=== PATIENT | male | born 1995 | race Caucasian/White ===

== ENCOUNTER 2017-09-14 12:40 | Emergency (ER) | payer MEDICAID ==
[~2017-09-14] VITALS: Ht 170.2 cm; Wt 53.1 kg
[2017-09-14 12:54] VITALS: BP 114/77
== END 2017-09-14 14:22 | disposition home or self-care (01) ==
LOC: ER 12:43
DX: R05 Cough (principal); R07.89 Other chest pain
CPT/HCPCS: 71046; A4606; Z7610

== ENCOUNTER 2018-07-05 18:39 | Emergency (ER) | payer MEDICAID, OTHER ==
[~2018-07-05] VITALS: Ht 170.2 cm; Wt 53.1 kg
--- NOTE | 2018-07-05 19:27 | NUR ---
MARIEL MUNOZ AT BEDSIDE
--- NOTE | 2018-07-05 19:29 | NUR ---
EMT PERFORMING EKG IN TRIAGE ROOM
[2018-07-05] MEDS ORDERED: ALBUTEROL FS 2.5 MG/3 ML VIAL.NEB NEB ONE ×3 (20:00→22:00)
[2018-07-05] MEDS ORDERED: IPRATROPIUM NEB FS 0.5 MG/2.5 ML AMPUL.NEB NEB ONE ×2 (20:00→21:00)
[2018-07-05] MEDS ORDERED: predniSONE 20 MG TABLET PO ONE ×2 (20:00→21:00)
[2018-07-05] MEDS ORDERED: predniSONE 20 MG TABLET ONE (20:20)
[2018-07-05] MEDS ORDERED: KETOROLAC TROMETHAMINE INJ 30 MG/ML VIAL IV ONE (20:30)
--- NOTE | 2018-07-05 20:33 | NUR ---
PT BBSELF FROM HOME C/C L SIDED CP AND SHOULDER PAIN ON DEEP INSPIRATION X3 DAYS WITH COUGH. PT IS AAOX4. SKIN WARM AND DRY. NO S/S OF ACUTE DISTRESS NOTED. 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 PT SAFETY AND COMFORT MEASURES IN PLACE. WILL CONITNUE TO MONITOR PT.
[2018-07-05] MEDS ORDERED: KETOROLAC TROMETHAMINE INJ 30 MG/ML VIAL ONE (20:36)
[2018-07-05] MEDS ORDERED: ALBUTEROL FS 2.5 MG/3 ML VIAL.NEB ONE (20:43)
[2018-07-05] MEDS ORDERED: IPRATROPIUM NEB FS 0.5 MG/2.5 ML AMPUL.NEB ONE (20:43)
--- NOTE | 2018-07-05 20:45 | NUR ---
RT BEDSIDE FOR BREATHING TREATMENT
[2018-07-05] MEDS ORDERED: KETOROLAC TROMETHAMINE INJ 60 MG/2 ML VIAL IM ONE (21:00)
[2018-07-05 21:03] LABS: BASOPHILS # (AUTO) 0.1 /CMM (0.0-0.2); EOSINOPHILS % (AUTO) 0.9 % (0.0-6.0); HEMATOCRIT 44 % (39-51); HEMOGLOBIN 14.8 g/dL (13.5-17.5); LYMPHOCYTES # (AUTO) 1.8 /CMM (0.8-4.8); LYMPHOCYTES % (AUTO) 19.8 % (20.0-44.0); MEAN CORPUSCULAR HGB CONC 34 g/dl (31.0-36.0); MEAN CORPUSCULAR VOLUME 90 fL (80-96); MONOCYTES # (AUTO) 0.6 /CMM (0.1-1.30); MONOCYTES % (AUTO) 6.8 % (2.0-12.0); NEUTROPHILS # (AUTO) 6.3 /CMM (1.8-8.9); NEUTROPHILS % (AUTO) 71.5 % (43.0-81.0); PLATELET COUNT (AUTO) 155 /CMM (150-450); RED BLOOD CELL COUNT(AUTO) 4.87 MIL/uL (4.5-6.0); WHITE BLOOD COUNT (AUTO) 8.9 K/uL (4.3-11.0)
[2018-07-05 21:12] LABS: CALCIUM, SERUM 9.4 mg/dL (8.5-10.1); CARBON DIOXIDE 30 mmol/L (21-32); CHLORIDE 103 mmol/L (98-107); CREATININE 1.1 mg/dL (0.6-1.3); GLUCOSE 104 mg/dL (74-106); POTASSIUM 3.7 mmol/L (3.5-5.1); SODIUM SERUM 140 mmol/L (136-145); UREA NITROGEN, BLOOD 15 mg/dL (7-18)
--- NOTE | 2018-07-05 22:11 | NUR ---
Patient discharged to home in stable condition. Written and verbal after care instructions given. Patient verbalizes understanding of instruction. SECOND BREATHING TREATMENT COMPLETED. PT AMBULATED OUT WITH NO S/S OF DISTRESS NOTED.
[2018-07-05 22:12] VITALS: BP 130/67
== END 2018-07-05 22:14 | disposition home or self-care (01) ==
LOC: ER 18:40
DX: M94.0 Chondrocostal junction syndrome [Tietze] (principal); J98.01 Acute bronchospasm; Z72.0 Tobacco use
CPT/HCPCS: 36415; 71045-TC; 80048-TC; 84484-TC; 85025-TC; 85378-TC; A4606; J1885; Z7610

== ENCOUNTER 2019-03-31 10:00 | Emergency (ER) | payer MEDICAID, OTHER ==
[~2019-03-31] VITALS: Ht 170.2 cm; Wt 54.4 kg
[2019-03-31 11:15] VITALS: BP 123/59
[2019-03-31] MEDS ORDERED: LIDOCAINE /MPF 1% VIAL 5 ML VIAL IJ ONE (11:30)
[2019-03-31] MEDS ORDERED: LIDOCAINE 1% INJ 50 ML MDV IJ ONE (11:48)
[2019-03-31] MEDS ORDERED: TDAP [DIPH/PERTUSSIS/TET] 0.5 ML VIAL IM ONE ×2 (12:42→13:00)
== END 2019-03-31 13:08 | disposition home or self-care (01) ==
LOC: ER 10:03
DX: S69.81XA Other specified injuries of right wrist, hand and finger(s), initial encounter (principal); F17.200 Nicotine dependence, unspecified, uncomplicated; W22.8XXA Striking against or struck by other objects, initial encounter; Y93.89 Activity, other specified; Y92.89 Other specified places as the place of occurrence of the external cause; Y99.8 Other external cause status
CPT/HCPCS: 29130; 73140; 90471; 90715; 99284; J3490

== ENCOUNTER 2019-04-21 18:21 | Emergency (ER) | payer MEDICAID ==
--- NOTE | 2019-04-21 18:25 | NUR ---
Called No response
--- NOTE | 2019-04-21 18:32 | NUR ---
Called No response
--- NOTE | 2019-04-21 18:48 | NUR ---
Called NO response-[facility]
== END 2019-04-21 18:57 | disposition left against medical advice (07) ==
LOC: ER 18:24
DX: Z53.21 Procedure and treatment not carried out due to patient leaving prior to being seen by health care provider (principal)

== ENCOUNTER 2019-06-07 00:33 | Emergency (ER) | payer MEDICAID ==
--- NOTE | 2019-06-07 01:21 | NUR ---
CALLED TO TRIAGE. NO ANSWER
--- NOTE | 2019-06-07 01:25 | NUR ---
CALLED TO TRIAGE. NO ANSWER
--- NOTE | 2019-06-07 01:40 | NUR ---
CALLED TO TRIAGE. NO ANSWER
== END 2019-06-07 01:40 | disposition home or self-care (01) ==
LOC: ER 00:40
DX: Z53.21 Procedure and treatment not carried out due to patient leaving prior to being seen by health care provider (principal)

== ENCOUNTER 2023-05-28 16:51 | Emergency (ER) | payer MEDICAID, OTHER ==
[~2023-05-28] VITALS: Ht 167.6 cm; Wt 54.4 kg
[2023-05-28 17:05] VITALS: BP 106/60; TEMP 98.1
[2023-05-28] MEDS ORDERED: IBUP-1953 PO (19:26)
[2023-05-28 20:57] VITALS: O2SAT 99
== END 2023-05-28 20:58 | disposition home or self-care (01) ==
LOC: ER 17:10
DX: S60.022A Contusion of left index finger without damage to nail, initial encounter (principal); F17.200 Nicotine dependence, unspecified, uncomplicated; V89.2XXA Person injured in unspecified motor-vehicle accident, traffic, initial encounter; Y93.89 Activity, other specified; Y92.89 Other specified places as the place of occurrence of the external cause; Y99.8 Other external cause status
CPT/HCPCS: 73140-TC